=== PATIENT | male | born 1975 | race Two or more races ===

== ENCOUNTER → 2021-07-13 | Outpatient (CLI) | payer SELFPAY ==
--- NOTE | 2021-07-13 14:19 | RAD ---
MR#: [id number] Date of Study: 07/13/2021 Ordering Physician: LION BAILEY, Referring Physician: MIAN ADAN Tech: APPROVED REPORT Test Type: Exercise Stress Nurse/Tech: Harini South RN Test Indications: Chest Pain Cardiac History: HTN, See EMR. Medications: See EMR. Medical History: Smoker x18yrs, quit 1mth ago, See EMR. Resting ECG: SB Resting Heart Rate: 46 bpm Resting Blood Pressure: 135/80mmHg Pretest Chest Pain: No chest pain Nurse/Tech Notes Lungs CTA, Heart tones regular. Consent: The procedure was explained to the patient in lay terms. Informed consent was witnessed. Darrion eout was entered into [employer]. History and Stress Test performed by RT Imtiaz (R) (N) Stress Symptoms Dizziness, at the end of treadmill walk; this resolved within 1 min of rest. POST EXERCISE Reason for Termination: Reached target heart rate Target HR: Yes Max HR: 154 bpm 102% of Maximum Predicted HR: 150 bpm Exercise duration: 8:58 min:sec, 3 Stage Exercise capacity: 10.0METs Max Blood Pressure: 169/78mmHg Blood Pressure response to exercise: Normal blood pressure response during stress. Heart Rate response to exercise: WNL Chest Pain: No. Arrhythmia: No. ST Change: No. INTERPRETATION Stress EKG Conclusion: The resting EKG shows a sinus bradycardia with a rate of 46 bpm. The stress EKG shows no significant changes from baseline. No EKG evidence of stress-induced ischemia. Conclusion 1. Good exercise tolerance with the patient walking for 8 minutes and 58 seconds on a Jake protocol. 2. No chest pain with exertion. 3. No EKG evidence of stress-induced ischemia or arrhythmias. 4. Low risk treadmill stress test. Signed by : Pal Santigao MD Electronically Approved : 07/13/2021 14:19:08
== END ==
LOC: NM 08:42
PROVIDERS: ATTEND Internal Medicine
DX: I20.8 Other forms of angina pectoris (principal); R03.0 Elevated blood-pressure reading, without diagnosis of hypertension; F17.210 Nicotine dependence, cigarettes, uncomplicated
CPT/HCPCS: 93017